=== PATIENT | female | born 1995 | race Two or more races ===

== ENCOUNTER 2019-08-10 11:15 | Emergency (ER) | payer MEDICAID ==
[~2019-08-10] VITALS: Ht 152.4 cm; Wt 70.9 kg
[2019-08-10 11:20] VITALS: BP 113/85; Ht 152.4 cm; Wt 70.9 kg
[2019-08-10 12:00] LABS: BASOPHILS 0.3 % (0-2); EOSINOPHILS 0.7 % (0-7); HEMATOCRIT 36.2 % (36.0-48.0); HEMOGLOBIN 11.8 g/dL (12-16); IMMATURE GRANULOCYTES 0.1 % (0-5); LYMPHOCYTES 29.7 % (15-50); MCH 26.4 pg (26.0-34.0); MCHC 32.6 g/dL (31.0-37.0); MEAN PLATELET VOLUME 10.1 fL (7.4-10.4); MONOCYTES 5.5 % (2-11); NEUTROPHILS 63.7 % (40-80); PLATELET COUNT 247 10x3/uL (130-400); RBC 4.47 10x6/uL (4.00-5.40); RDW 14.6 % (11.5-14.5); WBC 7.1 10x3/uL (4.8-10.8)
[2019-08-10 12:07] LABS: HCG URINE NEGATIVE (NEGATIVE)
[2019-08-10 12:10] LABS: ALBUMIN 3.4 g/dL (3.4-5.0); ALKALINE PHOSPHATASE 115 U/L (46-116); ALT (SGPT) 24 U/L (10-68); BILIRUBIN - TOTAL 0.41 mg/dL (0.2-1.3); CALC OSMOLALITY 276 mosm/kg (275-300); CALCIUM 8.9 mg/dL (8.5-10.1); CARBON DIOXIDE 25.9 mmol/L (21.0-32.0); CHLORIDE - SERUM 107 mmol/L (98-107); CREATININE - SERUM 0.6 mg/dL (0.6-1.3); GLUCOSE 89 mg/dL (74-106); POTASSIUM - SERUM 3.8 mmol/L (3.5-5.1); PROTEIN - SERUM 7.5 g/dL (6.4-8.2); SODIUM 140 mmol/L (136-145); UREA NITROGEN 11 mg/dL (7-18); eGFR NON AFRICAN AMERICAN > 90 mL/min (90-120)
[2019-08-10 12:18] LABS: APPEARANCE HAZY (CLEAR); BACTERIA MODERATE /hpf (NONE SEEN); BILIRUBIN NEGATIVE (NEGATIVE); COLOR YELLOW (YELLOW); EPITHELIAL CELLS 0-5 /hpf (0-5); GLUCOSE NEGATIVE (NEGATIVE); KETONE NEGATIVE (NEGATIVE); MUCUS <1+ /lpf (NONE SEEN); NITRITE NEGATIVE (NEGATIVE); PROTEIN NEGATIVE (NEGATIVE); RED CELLS - URINE NONE SEEN /hpf (0-5); SPECIFIC GRAVITY 1.015 (1.005-1.020); UROBILINOGEN NORMAL (NORMAL); WHITE CELLS - URINE OCC /hpf (0-5)
[2019-08-10 13:18] LABS: LIPASE 95 U/L (73-393)
[2019-08-10 13:19] LABS: TROPONIN-I < 0.017 ng/mL (0.000-0.060)
[2019-08-10] MEDS ORDERED: DULCOLAX5 MG PO (13:34)
== END 2019-08-10 13:49 | disposition home or self-care (01) ==
LOC: D.ER 11:15
PROVIDERS: Family Medicine
DX: K59.00 Constipation, unspecified (principal); S39.011A Strain of muscle, fascia and tendon of abdomen, initial encounter

== ENCOUNTER 2019-09-30 14:35 | Emergency (ER) | payer MEDICAID ==
[~2019-09-30] VITALS: Ht 152.4 cm; Wt 74.1 kg
[~2019-09-30 14:35] MED LIST: DULCOLAX5 MG PO
[2019-09-30 14:53] VITALS: BP 129/89; Ht 152.4 cm; Wt 74.1 kg
[2019-09-30 15:35] LABS: BASOPHILS 0.1 % (0-2); EOSINOPHILS 0.7 % (0-7); HEMATOCRIT 36.1 % (36.0-48.0); HEMOGLOBIN 11.5 g/dL (12-16); IMMATURE GRANULOCYTES 0.2 % (0-5); MCH 27.1 pg (26.0-34.0); MCHC 31.9 g/dL (31.0-37.0); MCV 84.9 fL (80.0-100.0); MEAN PLATELET VOLUME 9.7 fL (7.4-10.4); MONOCYTES 8.6 % (2-11); NEUTROPHILS 62.4 % (40-80); PLATELET COUNT 283 10x3/uL (130-400); RBC 4.25 10x6/uL (4.00-5.40); RDW 15.6 % (11.5-14.5); WBC 8.7 10x3/uL (4.8-10.8)
[2019-09-30 15:47] LABS: APPEARANCE CLEAR (CLEAR); BILIRUBIN NEGATIVE (NEGATIVE); COLOR YELLOW (YELLOW); GLUCOSE NEGATIVE (NEGATIVE); KETONE NEGATIVE (NEGATIVE); NITRITE NEGATIVE (NEGATIVE); PROTEIN NEGATIVE (NEGATIVE); UROBILINOGEN NORMAL (NORMAL)
[2019-09-30 15:51] LABS: CALC OSMOLALITY 274 mosm/kg (275-300); CALCIUM 8.6 mg/dL (8.5-10.1); CARBON DIOXIDE 26.2 mmol/L (21.0-32.0); CHLORIDE - SERUM 105 mmol/L (98-107); CREATININE - SERUM 0.6 mg/dL (0.6-1.3); GLUCOSE 84 mg/dL (74-106); POTASSIUM - SERUM 3.6 mmol/L (3.5-5.1); SODIUM 139 mmol/L (136-145); UREA NITROGEN 8 mg/dL (7-18); eGFR NON AFRICAN AMERICAN > 90 mL/min (90-120)
[2019-09-30 16:04] LABS: HCG URINE POSITIVE (NEGATIVE)
[2019-09-30 16:19] LABS: ALBUMIN 3.1 g/dL (3.4-5.0); ALKALINE PHOSPHATASE 101 U/L (46-116); ALT (SGPT) 22 U/L (10-68); AMYLASE - SERUM 66 U/L (25-115); BILIRUBIN - TOTAL 0.24 mg/dL (0.2-1.3); HCG - QUANTITATIVE (MATERNAL) 2947 mIU/mL; LIPASE 150 U/L (73-393); PROTEIN - SERUM 7.5 g/dL (6.4-8.2)
== END 2019-09-30 16:16 | disposition left against medical advice (07) ==
LOC: D.ER 14:35
PROVIDERS: Emergency Medicine
DX: R10.9 Unspecified abdominal pain (principal)

== ENCOUNTER 2019-10-01 10:08 | Emergency (ER) | payer MEDICAID ==
[~2019-10-01] VITALS: Ht 152.4 cm; Wt 74.1 kg
[2019-10-01 10:14] VITALS: Ht 152.4 cm; Wt 74.1 kg
[2019-10-01 12:45] VITALS: BP 110/76
== END 2019-10-01 12:46 | disposition home or self-care (01) ==
LOC: D.ER 10:08
DX: O26.90 Pregnancy related conditions, unspecified, unspecified trimester (principal)

== ENCOUNTER 2019-10-10 10:49 | Emergency (ER) | payer MEDICAID ==
[~2019-10-10] VITALS: Ht 152.4 cm; Wt 72.7 kg
[2019-10-10 10:53] VITALS: Ht 152.4 cm; Wt 72.7 kg
[2019-10-10 11:25] LABS: BASOPHILS 0.3 % (0-2); EOSINOPHILS 0.8 % (0-7); HEMATOCRIT 37.9 % (36.0-48.0); IMMATURE GRANULOCYTES 0.3 % (0-5); LYMPHOCYTES 21.2 % (15-50); MCH 27.1 pg (26.0-34.0); MCHC 31.7 g/dL (31.0-37.0); MCV 85.7 fL (80.0-100.0); MEAN PLATELET VOLUME 9.9 fL (7.4-10.4); MONOCYTES 6.8 % (2-11); NEUTROPHILS 70.6 % (40-80); PLATELET COUNT 245 10x3/uL (130-400); RBC 4.42 10x6/uL (4.00-5.40); RDW 15.1 % (11.5-14.5); WBC 7.8 10x3/uL (4.8-10.8)
[2019-10-10 11:35] LABS: CALC OSMOLALITY 276 mosm/kg (275-300); CALCIUM 8.9 mg/dL (8.5-10.1); CARBON DIOXIDE 24.1 mmol/L (21.0-32.0); CHLORIDE - SERUM 105 mmol/L (98-107); CREATININE - SERUM 0.7 mg/dL (0.6-1.3); GLUCOSE 87 mg/dL (74-106); POTASSIUM - SERUM 3.6 mmol/L (3.5-5.1); SODIUM 140 mmol/L (136-145); UREA NITROGEN 9 mg/dL (7-18); eGFR NON AFRICAN AMERICAN > 90 mL/min (90-120)
[2019-10-10 12:01] LABS: ALBUMIN 3.2 g/dL (3.4-5.0); ALKALINE PHOSPHATASE 99 U/L (46-116); ALT (SGPT) 16 U/L (10-68); BILIRUBIN - TOTAL 0.45 mg/dL (0.2-1.3); HCG - QUANTITATIVE (MATERNAL) 37404 mIU/mL; PROTEIN - SERUM 7.8 g/dL (6.4-8.2)
[2019-10-10 12:45] LABS: APPEARANCE CLEAR (CLEAR); COLOR YELLOW (YELLOW); SPECIFIC GRAVITY 1.015 (1.005-1.020)
[2019-10-10 12:46] LABS: BILIRUBIN NEGATIVE (NEGATIVE); GLUCOSE NEGATIVE (NEGATIVE); KETONE LARGE mg/dL (NEGATIVE); NITRITE POSITIVE (NEGATIVE); PROTEIN NEGATIVE (NEGATIVE); UROBILINOGEN NORMAL (NORMAL)
[2019-10-10 12:47] LABS: BACTERIA MANY /hpf (NEGATIVE); MUCUS >1+ /lpf (NONE SEEN); RED CELLS - URINE 0-5 /hpf (0-5); UDS - AMPHET NEGATIVE QUAL (NEGATIVE); UDS - BARB NEGATIVE QUAL (NEGATIVE); UDS - BENZO NEGATIVE QUAL (NEGATIVE); UDS - COCAINE NEGATIVE QUAL (NEGATIVE); UDS - OPIATE NEGATIVE QUAL (NEGATIVE); UDS - PCP NEGATIVE QUAL (NEGATIVE); UDS - THC NEGATIVE QUAL (NEGATIVE)
[2019-10-10] MEDS ORDERED: PHENERGAN25 M1 PO (14:06)
[2019-10-10] MEDS ORDERED: KEFLEX500 MG PO (14:07)
[2019-10-10 14:38] VITALS: BP 132/82
== END 2019-10-10 14:40 | disposition home or self-care (01) ==
LOC: D.ER 10:49
PROVIDERS: Family Medicine
DX: O23.41 Unspecified infection of urinary tract in pregnancy, first trimester (principal); O21.9 Vomiting of pregnancy, unspecified; Z3A.01 Less than 8 weeks gestation of pregnancy; N39.0 Urinary tract infection, site not specified

== ENCOUNTER 2019-10-12 08:59 | Outpatient (CLI) | payer MEDICAID ==
[2019-10-10 10:53] VITALS: BMI 31.3
[~2019-10-12 08:59] MED LIST changes: +KEFLEX500 MG PO; +PHENERGAN25 M1 PO
[2019-10-12 09:36] LABS: BASOPHILS 0.4 % (0-2); EOSINOPHILS 0.4 % (0-7); HEMATOCRIT 37.9 % (36.0-48.0); HEMOGLOBIN 12.2 g/dL (12-16); IMMATURE GRANULOCYTES 0.1 % (0-5); LYMPHOCYTES 22.3 % (15-50); MCH 27.3 pg (26.0-34.0); MCHC 32.2 g/dL (31.0-37.0); MCV 84.8 fL (80.0-100.0); MEAN PLATELET VOLUME 10.2 fL (7.4-10.4); MONOCYTES 8.1 % (2-11); NEUTROPHILS 68.7 % (40-80); PLATELET COUNT 256 10x3/uL (130-400); RBC 4.47 10x6/uL (4.00-5.40); WBC 7.2 10x3/uL (4.8-10.8)
[2019-10-12 09:41] LABS: CALC OSMOLALITY 272 mosm/kg (275-300); CALCIUM 9.1 mg/dL (8.5-10.1); CARBON DIOXIDE 22.2 mmol/L (21.0-32.0); CHLORIDE - SERUM 104 mmol/L (98-107); CREATININE - SERUM 0.6 mg/dL (0.6-1.3); GLUCOSE 81 mg/dL (74-106); POTASSIUM - SERUM 3.6 mmol/L (3.5-5.1); SODIUM 138 mmol/L (136-145); UREA NITROGEN 7 mg/dL (7-18); eGFR NON AFRICAN AMERICAN > 90 mL/min (90-120)
[2019-10-12 09:44] LABS: ALBUMIN 3.4 g/dL (3.4-5.0); ALKALINE PHOSPHATASE 99 U/L (46-116); ALT (SGPT) 16 U/L (10-68); BILIRUBIN - TOTAL 0.39 mg/dL (0.2-1.3); PROTEIN - SERUM 7.5 g/dL (6.4-8.2)
[2019-10-12 10:20] LABS: APPEARANCE CLEAR (CLEAR); COLOR YELLOW (YELLOW)
[2019-10-12 10:21] LABS: BILIRUBIN NEGATIVE (NEGATIVE); GLUCOSE NEGATIVE (NEGATIVE); KETONE LARGE mg/dL (NEGATIVE); NITRITE NEGATIVE (NEGATIVE); PROTEIN NEGATIVE (NEGATIVE); SPECIFIC GRAVITY 1.015 (1.005-1.020)
--- NOTE | 2019-10-12 16:20 | NUR ---
PT TRANSFERRED FROM LABOR AND DELIVERY BY WHEELCHAIR. BEDSIDE REPORT RECEIVED FROM Tisha RUBY RN. PT IS AWAKE AND ALERT AT THIS TIME, SHE RATES HER PAIN AT 0/10 AND DENIES NAUSEA. IV INFUSING TO RIGHT HAND PER ORDERS. PT IS NPO PER DR RIVERA ORDERS AND STATES HER UNDERSTANDING TO WHY THIS IS. CALL LIGHT IN REACH WITH SIDE RAILS UP X 2.
--- NOTE | 2019-10-12 17:56 | NUR ---
PT CALLS OUT WITH REQUEST FOR PHENERGAN, STATES THAT SHE IS VERY NAUSEATED AT THIS TIME. PHENERGAN 25MG DILUTED IN 9ML NS GIVEN SLOW IV PUSH OVER 5MINUTES, FLUSHED EASILY AFTERWARDS WITH 5ML NS. LIGHTS TURNED DOWN PER PT REQUEST.
--- NOTE | 2019-10-12 20:00 | NUR ---
PT IS RESTING WITH HER EYES CLOSED IN HER DARK ROOM. SHE IS VERY DROWSEY. SHE WILL ANSWER QUESTIONS BUT REALLY DOESN'T WANT TO BE BOTHERED. HEART SOUNDS GOOD, LUNGS CLEAR, BOWEL SOUNDS HEARD. PT GETS UP TO GO TO THE BR INDEPENDENTLY. SHE HAS NOT VOMITED THIS SHIFT. SHE STATES SHE CANNOT REMEMBER THE LAST TIME SHE VOMITED. SHE CONT. TO BE NPO. NO C/O NAUSEA AT THIS TIME. REGLAN WAS GIVEN IV AT 1930. FOLLOWING.
--- NOTE | 2019-10-12 20:21 | NUR ---
PT RESTING WITH HER EYES CLOSED AT THIS TIME. SHE DOES WAKE UP TO TALK. REGLAN IV GIVEN WELL D5 1/2 NS AT 125CC/HR. EXPLAINED TO PT THAT I WOULD BE BACK A LITTLE LATER TO DO HER ASSESSMENT.
--- NOTE | 2019-10-12 21:15 | NUR ---
DR RITTER CALLED, NEW ORDERS NOTED TO DISCONTINUE ROCEPHIN.
[2019-10-12 22:21] VITALS: BP 124/68; BMI 31.3
--- NOTE | 2019-10-13 | NUR ---
PT STILL RESTING WITH HER EYES CLOSED RESTING ON HER ABD. SHE WILL WAKE UP WHEN ASKED QUESTIONS. SHE HAS NOT VOMITED SINCE THE BEGINNING OF THIS SHIFT THAT RN HAS SEEN AND PT HAS NOT STATES SHE HAS VOMITED. PT HAS NO NEEDS OR WANTS AT THIS TIME.
--- NOTE | 2019-10-13 02:00 | NUR ---
JASBIR PETE RN TO CALL DR RITTER TO SEE IF PHENERGAN ORDER CAN BE CHANGED FROM IV TO IM
[2019-10-13 03:48] VITALS: BP 90/46
--- NOTE | 2019-10-13 03:48 | NUR ---
PT RESTING WITH EYES CLOSED, AROUSES TO SOFT VERBAL STIMULATION, VS OBTAINED, ADM REGLAN SIVP PER MD ORDERS, SEE EMAR, PT DENIES ANY NAUSEA/VOMITING OR PAIN AT THIS TIME, PT STATES "I'M READY TO GO HOME", PT DENIES ANY NEEDS
--- NOTE | 2019-10-13 06:50 | NUR ---
PT SLEEPING DURING REPORT. BEDSIDE SHIFT REPORT NOT DONE.
[2019-10-13 07:45] VITALS: BP 120/64
--- NOTE | 2019-10-13 07:45 | NUR ---
AM ASSESSMENT COMPLETE, SEE FLOWSHEET. VS OBTAINED AND STABLE, SEE FLOWSHEET. PATIENT RATES PAIN AT 0 OUT OF 10 AND DENIES ANY NAUSEA OR VOMITING. 400CC CLEAR YELLOW URINE NOTED IN HAT AND EMPTIED. PATIENT DENIES ANY ISSUES WITH VOIDING. RIGHT HAND IV PATENT AND INFUSING. PT DENIES PAIN AT IV SITE. BREAKFAST TRAY NOTED AT BEDSIDE. PT DENIES ANY NEEDS AT THIS TIME. SRUP X2, CALL LIGHT AND PHONE WITHIN REACH.
--- NOTE | 2019-10-13 08:50 | NUR ---
ROUNDS COMPLETED. DENIES NAUSEA AND VOMITING AND PAIN. FRESH ICE WATER PROVIDED. SRUPX2. CALL LIGHT AND PHONE WITHIN REACH.
--- NOTE | 2019-10-13 09:14 | NUR ---
DR. RITTER CALLED UNIT AND ORDERS RECEIVED FOR REGULAR DIET.
--- NOTE | 2019-10-13 09:35 | NUR ---
ROUNDS COMPLETED. PT DENIES ANY NEEDS AT THIS TIME. SRUPX2, CALL LIGHT AND PHONE WITHIN REACH.
--- NOTE | 2019-10-13 10:06 | NUR ---
ROUNDS COMPLETED. PT RESTING WITH EYES CLOSED. RESPIRATIONS EVEN AND UNLABORED. SRUPX2 CALL LIGHT AND PHONE WITHIN REACH.
[2019-10-13 12:09] VITALS: BP 103/73
--- NOTE | 2019-10-13 12:13 | NUR ---
LOOKING AT CELL PHONE. DENIES NEEDS. NO EMESIS.
--- NOTE | 2019-10-13 14:00 | NUR ---
EATING REG DIET- TOLERATING WELL. NO EMESIS.
--- NOTE | 2019-10-13 15:24 | NUR ---
ATE REG DIET- GET WELL. NO EMESIS. STATES IS READY TO GO HOME.
--- NOTE | 2019-10-13 15:30 | NUR ---
REPORT OF PT EATING AND NO EMESIS AND THAT SHE IS READY TO GO HOME TO DR RIVERA. STATES SHE WANTS TO COME AND SEE HER BEFORE DISCHARGE. INFORMED PT OF THIS.
--- NOTE | 2019-10-13 16:22 | NUR ---
dr be to room to see pt- discharge orders received.
--- NOTE | 2019-10-13 16:45 | NUR ---
IV CATH REMOVED -CATH TIP INTACT. PRESSURE HELD AND BANDAIDE APPLIED. SCRIPT FOR REGLAN 10MG PO [id number] CALLED INTO [facility] ON [address].
[2019-10-13] MEDS ORDERED: REGLAN10 MG PO (16:55)
--- NOTE | 2019-10-13 17:15 | NUR ---
DISCHARGE INST VERBAL AND WRITTEN GIVEN. SEE SIGNED INST SHEET. PT STATES SHE WILL WALK OFF UNIT WITH FAMILY- DENIES WANTING WHEELCHAIR. STATES THAT SHE WILL FINISH HER SUPPER AND THEN BE READY TO LEAVE UNIT.
--- NOTE | 2019-10-13 17:26 | NUR ---
PT AMBULATORY OFF UNIT WITH FAMILY. STABLE.
== END 2019-10-13 17:27 | disposition home or self-care (01) ==
LOC: D.LDO 08:59 → D.WS 17:36 → D.LDO 10-13 17:27
PROVIDERS: Student in an Organized Health Care Education/Training Program; ATTEND Obstetrics & Gynecology
DX: O26.891 Other specified pregnancy related conditions, first trimester (principal); Z3A.08 8 weeks gestation of pregnancy; M54.9 Dorsalgia, unspecified; R11.2 Nausea with vomiting, unspecified

== ENCOUNTER 2019-10-20 10:08 | Outpatient (CLI) | payer MEDICAID ==
[2019-10-10 10:53] VITALS: BMI 31.3
[~2019-10-20 10:08] MED LIST changes: +REGLAN10 MG PO
[2019-10-20 11:52] LABS: ALBUMIN 3.5 g/dL (3.4-5.0); ALKALINE PHOSPHATASE 104 U/L (46-116); ALT (SGPT) 18 U/L (10-68); BILIRUBIN - TOTAL 0.46 mg/dL (0.2-1.3); CALC OSMOLALITY 273 mosm/kg (275-300); CALCIUM 9.5 mg/dL (8.5-10.1); CARBON DIOXIDE 23.4 mmol/L (21.0-32.0); CHLORIDE - SERUM 104 mmol/L (98-107); CREATININE - SERUM 0.6 mg/dL (0.6-1.3); GLUCOSE 81 mg/dL (74-106); POTASSIUM - SERUM 3.8 mmol/L (3.5-5.1); PROTEIN - SERUM 7.9 g/dL (6.4-8.2); SODIUM 138 mmol/L (136-145); UREA NITROGEN 9 mg/dL (7-18); eGFR NON AFRICAN AMERICAN > 90 mL/min (90-120)
[2019-10-20 11:57] LABS: BASOPHILS 0.2 % (0-2); EOSINOPHILS 0.5 % (0-7); HEMATOCRIT 38.2 % (36.0-48.0); HEMOGLOBIN 12.3 g/dL (12-16); IMMATURE GRANULOCYTES 0.2 % (0-5); MCH 27.3 pg (26.0-34.0); MCHC 32.2 g/dL (31.0-37.0); MCV 84.7 fL (80.0-100.0); MEAN PLATELET VOLUME 10.3 fL (7.4-10.4); MONOCYTES 5.2 % (2-11); NEUTROPHILS 70.9 % (40-80); PLATELET COUNT 296 10x3/uL (130-400); RBC 4.51 10x6/uL (4.00-5.40); RDW 14.9 % (11.5-14.5); WBC 9.3 10x3/uL (4.8-10.8)
[2019-10-20 12:17] LABS: APPEARANCE HAZY (CLEAR); BILIRUBIN NEGATIVE (NEGATIVE); COLOR YELLOW (YELLOW); GLUCOSE NEGATIVE (NEGATIVE); KETONE MODERATE mg/dL (NEGATIVE); NITRITE NEGATIVE (NEGATIVE); PROTEIN TRACE mg/dL (NEGATIVE); SPECIFIC GRAVITY 1.015 (1.005-1.020)
[2019-10-20 12:18] LABS: BACTERIA MANY /hpf (NEGATIVE); MUCUS >1+ /lpf (NONE SEEN); RED CELLS - URINE RARE /hpf (0-5); WHITE CELLS - URINE 0-5 /hpf (NEGATIVE)
--- NOTE | 2019-10-20 20:26 | NUR ---
ROUNDED ON ROOMON THIS OUTPATIENT. PT IS RESTING IN BED WATCHING TV. HER VS WERE 98.1, 106/63, 87,17, 99% O2. HEART SOUNDS CLEAR, LUNGS CLEAR, BOWEL SOUNDS IN ALL QUADS. PT IS UP AD BENIGNO IN HER ROOM. PT STATES SHE HAD A BM TODAY. IV IS INFUSING A BANANA BAG AT THIS TIME. PT STATES SHE HAS NO NAUSEA, NO VOMITING, AND NO ABD PAIN AT THIS TIME. SHE REFUSED HER PHENERGAN THAT WAS SCHEDULED AT THIS TIME. SHE DID TAKE HER REGLAN IV.
== END 2019-10-20 20:15 | disposition left against medical advice (07) ==
LOC: D.LDO 10:08 → D.LD 11:16 → D.LDO 20:15
PROVIDERS: ATTEND Student in an Organized Health Care Education/Training Program
DX: O26.899 Other specified pregnancy related conditions, unspecified trimester (principal); F41.0 Panic disorder [episodic paroxysmal anxiety]

== ENCOUNTER 2019-12-17 10:34 | Emergency (ER) | payer MEDICAID ==
[~2019-12-17] VITALS: Ht 152.4 cm; Wt 65.0 kg
[2019-12-17 10:38] VITALS: Ht 152.4 cm; Wt 65.0 kg
[2019-12-17 11:05] LABS: BASOPHILS 0.1 % (0-2); EOSINOPHILS 0.1 % (0-7); HEMATOCRIT 38.1 % (36.0-48.0); HEMOGLOBIN 12.5 g/dL (12-16); IMMATURE GRANULOCYTES 0.2 % (0-5); LYMPHOCYTES 14.2 % (15-50); MCH 27.7 pg (26.0-34.0); MCHC 32.8 g/dL (31.0-37.0); MCV 84.3 fL (80.0-100.0); MEAN PLATELET VOLUME 10.1 fL (7.4-10.4); NEUTROPHILS 81.4 % (40-80); PLATELET COUNT 254 10x3/uL (130-400); RBC 4.52 10x6/uL (4.00-5.40); RDW 14.6 % (11.5-14.5); WBC 8.8 10x3/uL (4.8-10.8)
[2019-12-17 12:44] VITALS: BP 116/72
[2019-12-17 12:46] LABS: APPEARANCE CLOUDY (CLEAR); BILIRUBIN NEGATIVE (NEGATIVE); COLOR YELLOW (YELLOW); GLUCOSE NEGATIVE (NEGATIVE); KETONE LARGE mg/dL (NEGATIVE); NITRITE NEGATIVE (NEGATIVE); PROTEIN NEGATIVE (NEGATIVE); SPECIFIC GRAVITY 1.015 (1.005-1.020)
[2019-12-17 12:47] LABS: EPITHELIAL CELLS >50 /hpf (0-5); RED CELLS - URINE 0-5 /hpf (0-5)
[2019-12-17 12:49] LABS: WHITE CELLS - URINE 25-50 /hpf (NEGATIVE)
[2019-12-17 12:50] LABS: BACTERIA MANY /hpf (NEGATIVE)
== END 2019-12-17 12:45 | disposition home or self-care (01) ==
LOC: D.ER 10:34
PROVIDERS: Emergency Medicine
DX: O26.892 Other specified pregnancy related conditions, second trimester (principal); Z3A.16 16 weeks gestation of pregnancy; R10.2 Pelvic and perineal pain

== ENCOUNTER → 2020-01-16 05:15 | Outpatient (CLI) | payer MEDICAID ==
[2019-12-17 10:38] VITALS: BMI 27.9
[2020-01-16 06:02] LABS: APPEARANCE CLEAR (CLEAR); BILIRUBIN NEGATIVE (NEGATIVE); COLOR YELLOW (YELLOW); GLUCOSE NEGATIVE (NEGATIVE); KETONE NEGATIVE (NEGATIVE); NITRITE NEGATIVE (NEGATIVE); PROTEIN NEGATIVE (NEGATIVE); SPECIFIC GRAVITY 1.015 (1.005-1.020); UROBILINOGEN NORMAL (NORMAL)
== END | disposition home or self-care (01) ==
LOC: D.LDO 05:15
PROVIDERS: ATTEND Obstetrics & Gynecology
DX: O26.892 Other specified pregnancy related conditions, second trimester (principal); Z3A.19 19 weeks gestation of pregnancy; R10.9 Unspecified abdominal pain

== ENCOUNTER 2020-02-10 10:36 | Emergency (ER) | payer MEDICAID ==
[~2020-02-10] VITALS: Ht 152.4 cm; Wt 66.4 kg
[2020-02-10 10:40] VITALS: Ht 152.4 cm; Wt 66.4 kg
[2020-02-10 11:06] LABS: BASOPHILS 0.2 % (0-2); EOSINOPHILS 0.4 % (0-7); HEMATOCRIT 35.7 % (36.0-48.0); HEMOGLOBIN 11.3 g/dL (12-16); IMMATURE GRANULOCYTES 0.5 % (0-5); LYMPHOCYTES 19.1 % (15-50); MCH 27.6 pg (26.0-34.0); MCHC 31.7 g/dL (31.0-37.0); MCV 87.1 fL (80.0-100.0); MEAN PLATELET VOLUME 9.5 fL (7.4-10.4); MONOCYTES 6.3 % (2-11); NEUTROPHILS 73.5 % (40-80); PLATELET COUNT 283 10x3/uL (130-400); RDW 14.9 % (11.5-14.5); WBC 12.2 10x3/uL (4.8-10.8)
[2020-02-10 11:27] LABS: CALC OSMOLALITY 268 mosm/kg (275-300); CALCIUM 8.9 mg/dL (8.5-10.1); CARBON DIOXIDE 26.2 mmol/L (21.0-32.0); CHLORIDE - SERUM 101 mmol/L (98-107); CREATININE - SERUM 0.5 mg/dL (0.6-1.3); POTASSIUM - SERUM 3.9 mmol/L (3.5-5.1); SODIUM 136 mmol/L (136-145); UREA NITROGEN 10 mg/dL (7-18); eGFR NON AFRICAN AMERICAN > 90 mL/min (90-120)
[2020-02-10 11:28] LABS: GLUCOSE 69 mg/dL (74-106)
[2020-02-10 11:32] LABS: BILIRUBIN NEGATIVE (NEGATIVE); GLUCOSE NEGATIVE (NEGATIVE); KETONE NEGATIVE (NEGATIVE); NITRITE NEGATIVE (NEGATIVE); SPECIFIC GRAVITY 1.015 (1.005-1.020)
[2020-02-10 11:33] LABS: ALKALINE PHOSPHATASE 136 U/L (30-120); ALT (SGPT) 12 U/L (10-68); BILIRUBIN - TOTAL 0.33 mg/dL (0.2-1.3); PROTEIN - SERUM 7.6 g/dL (6.4-8.2)
[2020-02-10 11:33] LABS: BACTERIA FEW /hpf (NEGATIVE); EPITHELIAL CELLS 0-5 /hpf (0-5); RED CELLS - URINE OCC /hpf (0-5); WHITE CELLS - URINE RARE /hpf (NEGATIVE)
[2020-02-10] MEDS ORDERED: MECLIZINE HCL25 MG PO (12:04)
[2020-02-10] MEDS ORDERED: ZOFRAN4 MG PO (12:04)
[2020-02-10 12:29] VITALS: BP 129/71
== END 2020-02-10 12:45 | disposition home or self-care (01) ==
LOC: D.ER 10:36
PROVIDERS: Emergency Medicine
DX: O21.2 Late vomiting of pregnancy (principal); Z3A.23 23 weeks gestation of pregnancy; R42 Dizziness and giddiness

== ENCOUNTER → 2020-03-28 10:09 | Outpatient (CLI) | payer MEDICAID ==
[2020-02-10 10:40] VITALS: BMI 28.5
[~2020-03-28 10:09] MED LIST changes: +MECLIZINE HCL25 MG PO; +ZOFRAN4 MG PO
== END | disposition home or self-care (01) ==
LOC: D.LDO 10:09
PROVIDERS: ATTEND Student in an Organized Health Care Education/Training Program
DX: O36.8190 Decreased fetal movements, unspecified trimester, not applicable or unspecified (principal); Z3A.00 Weeks of gestation of pregnancy not specified

== ENCOUNTER 2020-04-28 22:06 | Observation (INO) | payer MEDICAID ==
[2020-02-10 10:40] VITALS: BMI 28.5
== END 2020-04-29 01:00 | disposition home or self-care (01) ==
LOC: D.LD 22:06 → OBSVTIME 22:06 → D.LD 04-29 01:00
PROVIDERS: ADMIT Student in an Organized Health Care Education/Training Program; ATTEND Student in an Organized Health Care Education/Training Program
DX: O26.893 Other specified pregnancy related conditions, third trimester (principal); Z3A.34 34 weeks gestation of pregnancy; R10.9 Unspecified abdominal pain

== ENCOUNTER 2020-05-17 20:21 | Outpatient (CLI) | payer MEDICAID ==
[2020-02-10 10:40] VITALS: BMI 28.5
[2020-05-17 21:07] LABS: BILIRUBIN NEGATIVE (NEGATIVE); GLUCOSE NEGATIVE (NEGATIVE); KETONE NEGATIVE (NEGATIVE); NITRITE NEGATIVE (NEGATIVE); UROBILINOGEN NORMAL (NORMAL)
[2020-05-17 21:08] LABS: BACTERIA FEW /hpf (NEGATIVE); EPITHELIAL CELLS 0-5 /hpf (0-5); RED CELLS - URINE 25-50 /hpf (0-5); WHITE CELLS - URINE 0-5 /hpf (NEGATIVE)
== END 2020-05-17 21:11 | disposition home or self-care (01) ==
LOC: D.LDO 20:21
PROVIDERS: ATTEND Obstetrics & Gynecology
DX: O26.893 Other specified pregnancy related conditions, third trimester (principal); Z3A.37 37 weeks gestation of pregnancy; M54.9 Dorsalgia, unspecified; R10.30 Lower abdominal pain, unspecified

== ENCOUNTER 2020-05-25 00:47 | Outpatient (CLI) | payer MEDICAID ==
[2020-02-10 10:40] VITALS: BMI 28.5
== END 2020-05-25 02:31 | disposition home or self-care (01) ==
LOC: D.LDO 00:47
PROVIDERS: ATTEND Student in an Organized Health Care Education/Training Program
DX: O26.893 Other specified pregnancy related conditions, third trimester (principal); Z3A.38 38 weeks gestation of pregnancy; N85.8 Other specified noninflammatory disorders of uterus

== ENCOUNTER 2020-05-30 03:52 | Inpatient (IN) | payer MEDICAID ==
[~2020-05-30] VITALS: Ht 152.4 cm; Wt 80.0 kg
[2020-05-30] MEDS ORDERED: PRENAVITE1 TAB PO (04:03)
[2020-05-30] MEDS ORDERED: FERROUS SULFAT325 MG PO (04:03)
[2020-05-30 05:30] LABS: HEMATOCRIT 32.3 % (36.0-48.0); HEMOGLOBIN 9.5 g/dL (12-16); MCH 22.9 pg (26.0-34.0); MCHC 29.4 g/dL (31.0-37.0); MCV 77.8 fL (80.0-100.0); MEAN PLATELET VOLUME 10.2 fL (7.4-10.4); RBC 4.15 10x6/uL (4.00-5.40); RDW 17.1 % (11.5-14.5); WBC 13.8 10x3/uL (4.8-10.8)
[2020-05-30 05:40] LABS: BILIRUBIN NEGATIVE (NEGATIVE); GLUCOSE NEGATIVE (NEGATIVE); KETONE NEGATIVE (NEGATIVE); NITRITE NEGATIVE (NEGATIVE); UROBILINOGEN NORMAL (NORMAL)
[2020-05-30 06:06] VITALS: BP 116/78; Ht 152.4 cm; Wt 80.0 kg
[2020-05-30 11:34] LABS: UDS - AMPHET NEGATIVE QUAL (NEGATIVE); UDS - BARB NEGATIVE QUAL (NEGATIVE); UDS - BENZO NEGATIVE QUAL (NEGATIVE); UDS - COCAINE NEGATIVE QUAL (NEGATIVE); UDS - OPIATE NEGATIVE QUAL (NEGATIVE); UDS - PCP NEGATIVE QUAL (NEGATIVE); UDS - THC NEGATIVE QUAL (NEGATIVE)
--- NOTE | 2020-05-30 13:33 | NUR ---
PT LYING SUPINE IN BED. EYES CLOSED. RESP NON-LABORED. PT NOT DISTURBED TO ALLOW FOR REST. SR UPX 2. CALL LIGHT IN REACH.
[2020-05-30 15:00] VITALS: BP 115/69
--- NOTE | 2020-05-30 15:07 | NUR ---
PT C/O H/A OF "8" ON 0-10 PAIN SCALE. TORADOL 10 MG GIVEN PO ORDERED. INSTRUCTED ON MED. VERBALIZES UNDERSTANDING.
--- NOTE | 2020-05-30 16:20 | NUR ---
PT SITTING UP IN BED. CONSUMING FOOD BROUGHT IN BY FAMILY. STATES HEADACHE RELIEVED BY TORADOL. STATES SHOWERED AND VOIDED. DENIES HEAVY BLEEDING/SOAKING PAD IN AN HOUR. STATES PASSED ONE SMALL CLOT. DENIES NEEDS OR C/O.
--- NOTE | 2020-05-30 18:32 | NUR ---
PT C/O ABDOMINAL CRAMPING OF "8" ON 0-10 PAIN SCALE. TYLENOL 1000 MG GIVEN PO ORDERED. PT ALSO VOIDED 450 ML OF BLOOD-TINGED URINE IN SPECIPAN-VOID NUMBER 3. PT DENIES HEAVY BLEEDING OR PASSING CLOTS.
[2020-05-30 19:30] VITALS: BP 99/70
--- NOTE | 2020-05-30 19:30 | NUR ---
ASSESSMENT PER FLOW SHEET, VS OBTAINED, SALINE LOCK TO LEFT AC INTACT WITH NO REDNESS OR EDEMA, FF, ML, U/1, PT REPORTS LITE BLEEDING WITH NO CLOTS, PT REPORTS FLATUS, NO BM AND VOIDING WITH NO DIFFICULTY, PT REPORTS ALREADY TAKING A SHOWER, DENIES PAIN, REQUESTED AND SERVED LEMON [place] SODA AND CUP OF ICE, DENIES FURTHER NEEDS
--- NOTE | 2020-05-30 20:15 | NUR ---
PT SITTING UP IN BED, HOLDING INFANT, NSY NURSE IN ROOM AT THIS TIME, PT DENIES NEEDS OR PAIN
--- NOTE | 2020-05-30 21:33 | NUR ---
PT AROUSES TO OPENING OF DOOR, C/O CRAMPING, ADM TORADOL PO PER MD ORDERS, SEE EMAR, PT DENIES FURTHER NEEDS, INFANT IN OPEN CRIB CART AND FOB AT BEDSIDE
--- NOTE | 2020-05-30 22:02 | NUR ---
PT GLOBAL CONSUMER SECTOR VICE PRESIDENT LIGHT, REPORTS PASSING A CLOT, CLOT NOTED TO BE ABOUT QUARTER SIZE IN THE COMMODE, PT BACK IN BED, FF, ML, U/1, LITE BLEEDING NOTED, PT DENIES FURTHER NEEDS, FOB FEEDING INFANT AT THIS TIME
--- NOTE | 2020-05-31 00:22 | NUR ---
PT HOLDING INFANT, PT INST NOT TO SLEEP WITH IN BED WITH HER, PT VERBALIZES UNDERSTANDING, DENIES NEEDS OR PAIN AT THIS TIME
--- NOTE | 2020-05-31 01:45 | NUR ---
PT RESTING WITH EYES CLOSED, RESP QUIET, NO DISTRESS NOTED, LEFT UNDISTURBED AT THIS TIME, FOB HOLDING INFANT
--- NOTE | 2020-05-31 03:33 | NUR ---
PT AWAKE, C/O CRAMPING, ADM TYLENOL PO PER MD ORDERS, SEE EMAR, WITH FRESH H2, PT DENIES FURTHER NEEDS, FOB ASLEEP ON COUCH
--- NOTE | 2020-05-31 04:21 | NUR ---
PT AWAKE, RATES CRAMPING 3/10, DENIES NEEDS, IN OPEN CRIB CART AND FOB ASLEEP AT BEDSIDE
--- NOTE | 2020-05-31 05:23 | NUR ---
PT AWAKE, HOLDING INFANT, DENIES NEEDS OR PAIN AT THIS TIME, FOB ASLEEP ON COUCH
[2020-05-31 05:56] LABS: BASOPHILS 0.2 % (0-2); EOSINOPHILS 0.3 % (0-7); HEMATOCRIT 29.3 % (36.0-48.0); HEMOGLOBIN 8.5 g/dL (12-16); IMMATURE GRANULOCYTES 0.5 % (0-5); LYMPHOCYTES 20.8 % (15-50); MCH 22.4 pg (26.0-34.0); MCV 77.3 fL (80.0-100.0); MEAN PLATELET VOLUME 9.7 fL (7.4-10.4); MONOCYTES 6.7 % (2-11); NEUTROPHILS 71.5 % (40-80); RBC 3.79 10x6/uL (4.00-5.40); RDW 17.3 % (11.5-14.5)
[2020-05-31 06:30] LABS: PLATELET COUNT 218 10x3/uL (130-400)
[2020-05-31 07:14] LABS: RAPID PLASMA REAGIN Non Reactive (Non Reactive)
--- NOTE | 2020-05-31 07:30 | NUR ---
AM ASSESSMENT COMPLETED CHARTED TO FLOWSHEET. PT DENIES PAIN OR DISCOMFORT AT THIS TIME, SHE IS SITTING UP IN BED EATING REGULAR DIET, INFANT IN ROOM WITH FOB ALSO PRESENT. ADDITIONAL BRANDON PADS AND MESH BRIEFS PLACED IN BATHROOM REQUESTED. CALL LIGHT IS WITHIN REACH.
--- NOTE | 2020-05-31 10:00 | NUR ---
PT UP WALKING ABOUT ROOM, RATES PAIN AT 0/10 AND DENIES NEEDS.
--- NOTE | 2020-05-31 11:00 | NUR ---
TYLENOL GIVEN REQUESTED FOR C/O HEADACHE.
--- NOTE | 2020-05-31 11:45 | NUR ---
RATES PAIN AT 1/10 AT THIS TIME, LARGE CUP OF ICE WITH LEMON [place] SODA REQUESTED.
--- NOTE | 2020-05-31 15:00 | NUR ---
TORDAL GIVEN FOR COMPLAINT OF PAIN THAT SHE RATES AT 6/10. SALINE LOCK REMOVED INTACT AT THIS TIME ALSO. BONDING WITH INFANT, DENIES ANY OTHER NEEDS AT THIS TIME.
--- NOTE | 2020-05-31 15:30 | NUR ---
PAIN REASSESSMENT, PT RATES AT 2/10.
--- NOTE | 2020-05-31 18:00 | NUR ---
VERBAL AND WRITTEN DISCHARGE ORDERS GONE OVER. STATES UNDERSTANDING OF PAIN CONTROL AFTER DISCHARGE. DENIES QUESTIONS OR CONCERNS. NURSERY NOTIFIED INFANT IS BEING SECURED INTO CARRIER.
--- NOTE | 2020-05-31 18:10 | NUR ---
TAKEN OUT BY WHEELCHAIR WITH SECURED IN TO CARRIER. HOME WITH SIG OTHER BY PRIVATE CAR.
== END 2020-05-31 18:29 | disposition home or self-care (01) | DRG 807 ==
LOC: D.LDO 03:52 → D.LD 04:46
PROVIDERS: ADMIT Obstetrics & Gynecology; ATTEND Obstetrics & Gynecology
PROC: 10E0XZZ Delivery of Products of Conception, External Approach (ICD-10-PCS; principal; 2020-05-30)
DX: O80 Encounter for full-term uncomplicated delivery (principal); Z37.0 Single live birth; Z3A.39 39 weeks gestation of pregnancy